=== PATIENT | female | born 1970 | race Caucasian/White ===

== ENCOUNTER 2020-09-14 08:17 | Day surgery (SDC) | payer MEDICAID, SELFPAY ==
[2020-09-14 08:35] VITALS: BP 142/90; PULSE 93; RESP 20; TEMP 36.6; O2SAT 97
--- NOTE | 2020-09-14 08:55 | W.PM.DSUDISC ---
Discharge Plan Disposition Patient Disposition: HOME Condition: Good Discharge Details Reason For Visit: Colonoscopy Attending Provider: Jenn Lemon Primary Care Provider: Vivian Blandon Home Meds and New Rx's Prescriptions: Continued docusate sodium 100 mg capsule 100 mg PO DAILY RF: 0 folic acid 1 mg tablet 1 mg PO DAILY RF: 0 polyethylene glycol 3350 17 gram/dose powder 17 g PO DAILY RF: 0 cyanocobalamin (vitamin B-12) 1,000 mcg capsule 1,000 mcg PO DAILY RF: 0 Discontinued polyethylene glycol 3350 17 gram/dose powder 238 g PO ONCE Qty: 238 RF: 0 polyethylene glycol 3350 17 gram/dose powder 238 g PO ONCE Qty: 238 RF: 0 bisacodyl [Dulcolax (bisacodyl)] 5 mg tablet,delayed release (DR/EC) 5 mg PO ONCE Qty: 4 RF: 0 Discharge Instructions Additional Instructions: Findings: One small polyp was removed from the colon. My office will contact you with results. Follow up: Plan for a colonoscopy in 5 years. Please call if you develop: fevers >101.5 Nausea or Vomiting Abdominal pain that is not transient DAY SURGERY UNIT POST COLONOSCOPY INSTRUCTIONS 1. Because there will be medication in your system for the next 24 hours, you may feel a little sleepy. Your coordination will be affected. Therefore: a. Do not drive or operate dangerous equipment for 24 hours. b. Do not drink alcohol beverages for 24 hours (not even beer). c. Plan to go home and rest for the day. 2. Generally there are no restrictions on your activity after a day or so has gone by, but you may feel a bit fatigued for a few days. 3 After you arrive home you may have a light meal and return to a normal diet as you can tolerate it without feeling sick to your stomach. 4. After surgery, you may feel pain or discomfort. This should be only transient, but if it persists please contact your doctor. 5. If there are any questions regarding the findings of your procedure, please feel free to contact your doctor. 6. If you are unable to contact your doctor with a problem, contact the hospital at [phone]. 7. Continue all your regular medications unless directed otherwise. I understand the above instructions and have no questions. Signature of Patient or Responsible Adult Escort Date/Time Name of Responsible Adult Escort Signature of Nurse Date/Time Activity:: Activity as Tolerated Diet:: As Tolerated Discharge Orders Discharge Orders: Discharge Order (Routine); Ordered 09/14/20 Ordered By: Jenn Lemon DS: Diagnosis Discharge Diagnosis (1) Cecal polyp: Status: Acute
--- NOTE | 2020-09-14 08:56 | W.COLOREPORT ---
Date of service: 09/14/20 Time of Service: 10:14 Colonoscopy Report Date of procedure: 09/14/20 Pre-op diagnosis general: Change in bowel habits Post-op diagnosis procedure note: other (Cecal polyp) Procedure: Colonoscopy with cold forceps polypectomy Surgeon: Jenn Lemon Anesthesia proc note operative: MAC Indications: This 50 year old man presents for evaluation of constipation that has worsened over the past 6 months. No known FH colon cancer. Procedure Description: The patient was placed in the left Valle position. Propofol was titrated to sedation. Digital rectal examination revealed no abnormalities. The scope was advanced to the cecum without difficulty. The ileocecal valve and appendiceal orifice were clearly identified. The prep was good. Near the appendiceal orifice, a less than 1cm polyp was removed with several bites of the cold forceps. The scope was slowly withdrawn over the course of greater than 6 minutes with no abnormalities seen in the ascending, transverse, descending, sigmoid colon or rectum including on retroflexed view. The patient tolerated the procedure well and was stable to recovery. Plan for colonoscopy in 5 years or sooner if symptoms indicate.
[2020-09-14] MEDS: Lactated Ringers 1,000 ML 80 ML IV (09:22)
--- NOTE | 2020-09-14 09:44 | BOWEL_PTH ---
PATIENT: YANET PERSON LOC: [facility] U#:[id number] AGE/SX: 50/F ROOM: RE09/14/[address]: Jenn Lemon MD : 1970 BED: DIS: 09/14/2020 SPEC #: [id number] RECD: 09/14/20 12:55 STATUS: BENJIE REQ #: [id number] MARVIN: 09/14/20 09:[address]: Jenn Lemon DEPT: Surgical Specimen RECD BY: Lynn Hughes ENTERED: 09/14/20 12:56 SP TYPE: Bowel OTHR DR: Vivian Blandon Tissues: 1 - BIOPSY BOWEL Procedures: GROSS AND MICRO LEVEL 4 Comments: [id number] ([facility] [place]#)
[2020-09-14 10:29] VITALS: BP 121/80; PULSE 78; RESP 16; TEMP 36.5; O2SAT 99
== END 2020-09-14 10:42 | disposition home or self-care (01) ==
PROVIDERS: PCP Physician Assistant Medical; Visit Provider Surgery
PROC: 0DJD8ZZ Inspection of Lower Intestinal Tract, Via Natural or Artificial Opening Endoscopic (ICD-10-PCS; CPT 45378; principal; 2020-09-14 09:00)
DX: K58.1 Irritable bowel syndrome with constipation (principal); K63.5 Polyp of colon; F41.9 Anxiety disorder, unspecified
CPT/HCPCS: 45380; 88305